=== PATIENT | female | born 1960 | race Caucasian/White ===

== ENCOUNTER 2017-10-22 13:20 | Emergency (ER) | payer BC ==
[2017-10-22 13:29] VITALS: BMI 34.3
[2017-10-22 13:32] VITALS: BP 113/77; PULSE 102; RESP 18; TEMP 98.7; O2SAT 97
--- NOTE | 2017-10-22 13:52 | C.PDOC ---
History Of Present Illness 57 year old female presents to the ER complaining of fever, chills, generalized body aches, malaise, cough and congestion starting this morning. She reports many sick contacts at work. She has not taken any medications for her symptoms. She denies chest pain, SOB, abdominal pain, urinary symptoms or rash. Time Seen by Provider: 10/22/17 13:45 Chief Complaint (Nursing): Flu-like Symptoms History Per: Patient History/Exam Limitations: no limitations Onset/Duration Of Symptoms: Hrs Current Symptoms Are (Timing): Still Present Associated Symptoms: Fever, Chills, Cough, Nasal Congestion Severity: Moderate Past Medical History Reviewed: Historical Data, Nursing Documentation, Vital Signs Vital Signs: Last Vital Signs Temp 98.7 F 10/22/17 13:29 Pulse 102 H 10/22/17 13:29 Resp 18 10/22/17 13:29 BP 113/77 10/22/17 13:29 Pulse Ox 97 10/22/17 17:52 - Medical History PMH: HTN, Hypercholesterolemia Surgical History: No Surg Hx Family History: States: No Known Family Hx - Social History Hx Tobacco Use: No Hx Alcohol Use: No Hx Substance Use: No - Immunization History Hx Tetanus Toxoid Vaccination: No Hx Influenza Vaccination: No Hx Pneumococcal Vaccination: No Review Of Systems Except As Marked, All Systems Reviewed And Found Negative. Constitutional: Positive for: Fever, Chills, Malaise ENT: Positive for: Nose Congestion Cardiovascular: Negative for: Chest Pain Respiratory: Positive for: Cough. Negative for: Shortness of Breath Gastrointestinal: Negative for: Abdominal Pain Genitourinary: Negative for: Dysuria, Frequency Skin: Negative for: Rash Physical Exam - Physical Exam Appears: Non-toxic, No Acute Distress Skin: Normal Color, Warm Head: Atraumatic, Normacephalic Eye(s): bilateral: Normal Inspection, EOMI Ear(s): Bilateral: Normal (no erythema) Nose: Normal Oral Mucosa: Moist Throat: Normal, No Erythema, No Exudate Neck: Supple Chest: Symmetrical Cardiovascular: Rhythm Regular, No Murmur Respiratory: Normal Breath Sounds, No Accessory Muscle Use, No Rales, No Rhonchi , No Wheezing Gastrointestinal/Abdominal: Normal Exam, Soft, No Tenderness Extremity: Bilateral: Atraumatic, Normal Color And Temperature, Normal ROM Neurological/Psych: Oriented x3, Normal Speech, Normal Motor, Normal Sensation Gait: Steady ED Course And Treatment O2 Sat by Pulse Oximetry: 97 (RA) Pulse Ox Interpretation: Normal Medical Decision Making Medical Decision Making: Patient with complaints of multiple symptoms onset this morning. Patient has no fever in ED and exam was unremarkable. Lungs clear bilaterally and O2 saturation is adequate. Patient has not received Flu vaccine. Based on history and exam, as well as widespread influenza these symptoms are most likely Influenza. Tamiflu given. Recommend supportive treatment. Rx given. Instruct to follow up with primary medical doctor Disposition Counseled Patient/Family Regarding: Diagnosis, Need For Followup, Rx Given - Disposition Referrals: Yodit Palomo MD [Staff Provider] - Disposition: HOME/ ROUTINE Disposition Time: 13:56 Condition: GOOD Additional Instructions: You have Influenza Take Tamiflu twice a day for 5 days. Take Tylenol or Motrin alternating every 4-6 hours for Fever 100.4F or higher. Rest and drink plenty of fluids. Follow up with your primary medical doctor or clinic in 2-5 days for further evaluation. Return to the emergency department at any time if symptoms persist or worsen. 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 - Scribe Statement The provider has reviewed the documentation as recorded by the Donny Logan Provider Attestation All medical record entries made by the Scribe were at my direction and personally dictated by me. I have reviewed the chart and agree that the record accurately reflects my personal performance of the history, physical exam, medical decision making, and the department course for this patient. I have also personally directed, reviewed, and agree with the discharge instructions and disposition.
== END 2017-10-22 14:08 | disposition home or self-care (01) ==
LOC: C.ER 13:20
DX: J11.1 Influenza due to unidentified influenza virus with other respiratory manifestations (principal); I10 Essential (primary) hypertension; E78.00 Pure hypercholesterolemia, unspecified

== ENCOUNTER 2017-11-10 18:07 | Emergency (ER) | payer OTHER, BC ==
[2017-11-10 18:08] VITALS: BMI 34.3
[2017-11-10 19:46] VITALS: BP 111/76; PULSE 88; TEMP 97.6; O2SAT 100
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
[2017-11-10 21:36] VITALS: RESP 20
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
== END 2017-11-10 21:35 | disposition home or self-care (01) ==
LOC: C.ER 18:07
DX: M54.6 Pain in thoracic spine (principal); V03.10XA Pedestrian on foot injured in collision with car, pick-up truck or van in traffic accident, initial encounter; Y92.410 Unspecified street and highway as the place of occurrence of the external cause

== ENCOUNTER 2018-05-27 19:04 | Emergency (ER) | payer OTHER, BC ==
[2018-05-27 19:04] VITALS: BMI 34.3
[2018-05-27 19:44] VITALS: BP 118/84; PULSE 93; RESP 20; TEMP 97.5; O2SAT 99
--- NOTE | 2018-05-27 20:06 | C.PDOC ---
History Of Present Illness 57 year old female presents to the ED for evaluation. Patient reports that she tripped at work 3 hours [employer]. Patient states she slipped and fell backwards hitting her head. Patient states she does not have pain but her company wanted her to come for evaluation. Patient denies LOC, neck pain, visual changes, nausea, vomit, weakness, numbness. Time Seen by Provider: 05/27/18 19:25 Chief Complaint (Nursing): Headache History Per: Patient History/Exam Limitations: no limitations Onset/Duration Of Symptoms: Hrs Current Symptoms Are (Timing): Gone Quality: "Pain" Associated Symptoms: denies: Blurred Vision Recent travel outside of the [place]: No Additional History Per: Patient Past Medical History Reviewed: Historical Data, Nursing Documentation, Vital Signs Vital Signs: Last Vital Signs Temp 97.5 F L 05/27/18 19:39 Pulse 93 H 05/27/18 19:39 Resp 20 05/27/18 19:39 BP 118/84 05/27/18 19:39 Pulse Ox 99 05/28/18 01:34 - Medical History PMH: HTN, Hypercholesterolemia Surgical History: No Surg Hx Family History: States: Unknown Family Hx - Social History Hx Tobacco Use: No Hx Alcohol Use: No Hx Substance Use: No - Immunization History Hx Tetanus Toxoid Vaccination: No Hx Influenza Vaccination: No Hx Pneumococcal Vaccination: No Review Of Systems Constitutional: Negative for: Fever, Chills Eyes: Negative for: Vision Change Cardiovascular: Negative for: Chest Pain Respiratory: Negative for: Shortness of Breath Gastrointestinal: Negative for: Nausea, Vomiting Skin: Negative for: Rash Neurological: Negative for: Weakness, Numbness, Headache, Dizziness Physical Exam - Physical Exam Appears: Non-toxic, No Acute Distress Skin: Normal Color, Warm, Dry Head: Atraumatic, Normacephalic Eye(s): bilateral: Normal Inspection, PERRL, EOMI Neck: Normal ROM, No Midline Cervical Tenderness, Supple Chest: Symmetrical Cardiovascular: Rhythm Regular Respiratory: Normal Breath Sounds, No Rales, No Rhonchi, No Wheezing Gastrointestinal/Abdominal: Soft, No Tenderness, No Guarding, No Rebound Back: Normal Inspection Extremity: Normal ROM, No Tenderness, No Swelling Neurological/Psych: Oriented x3, Normal Speech, Normal Motor, Normal Sensation Gait: Steady ED Course And Treatment O2 Sat by Pulse Oximetry: 99 (ON RA) Pulse Ox Interpretation: Normal Medical Decision Making Medical Decision Making: Patient has a normal physical exam and fell from a standing height onto a carpeted floor. There is no need for further diagnostic testing at this time. The patient was instructed to return to the ED as soon as possible if any worsened headache, dizziness, confusion, nausea, or vomiting. Disposition - Disposition Referrals: Yodit Palomo MD [Staff Provider] - Disposition: HOME/ ROUTINE Disposition Time: 20:07 Condition: GOOD Additional Instructions: return to the ED as soon as possible if any worsened headache, dizziness, confusion, nausea, or vomiting. 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 - Scribe Statement The provider has reviewed the documentation as recorded by the Scribe Brayan Estrada All medical record entries made by the Scribe were at my direction and personally dictated by me. I have reviewed the chart and agree that the record accurately reflects my personal performance of the history, physical exam, medical decision making, and the department course for this patient. I have also personally directed, reviewed, and agree with the discharge instructions and disposition.
== END 2018-05-27 20:29 | disposition home or self-care (01) ==
LOC: C.ER 19:04
DX: S09.90XA Unspecified injury of head, initial encounter (principal); W01.0XXA Fall on same level from slipping, tripping and stumbling without subsequent striking against object, initial encounter; Y92.89 Other specified places as the place of occurrence of the external cause; Y99.0 Civilian activity done for income or pay